=== PATIENT | male | born 1990 | race Caucasian/White ===

== ENCOUNTER 2018-05-26 18:57 | Emergency (ER) | payer OTHER, SELFPAY ==
[2018-05-26 19:01] VITALS: BP 129/92; PULSE 87; RESP 11; TEMP 37.2; O2SAT 96; BMI 33.0
--- NOTE | 2018-05-26 19:07 | ED.SYNCOPE ---
HPI - Syncope <DORY Stewart - Last Filed: 05/26/18 22:17> General Chief Complaint: Syncope Stated Complaint: near syncope Time Seen by Provider: 05/26/18 18:59 Source: patient Mode of arrival: EMS Limitations: no limitations History of Present Illness HPI narrative: 27-year-old healthy male that is an everyday smoker here for pre syncopal episodes. He reports this afternoon he had a couple episodes of presyncope where he felt lightheaded and saw stars. He denies any syncopal episodes. He states that he feels fine now. He denies any shortness of breath. He denies any chest pain. No known injuries. He denies any fevers or chills. Positive p.o. intake. No abdominal pain. He is ambulatory. He denies having a history of syncopal episodes. Related Data Allergies Allergy/AdvReac Type Severity Reaction Status Date / Time No Known Drug Allergies Allergy Verified 05/26/18 19:08 Review of Systems <DORY Stewart - Last Filed: 05/26/18 22:17> Constitutional Denies chills, Denies fatigue, Denies fever(s), Denies lethargy and Denies weakness Eyes Denies change in vision, Denies eye discharge, Denies irritation and Denies loss of vision ENT Ears, Nose, Mouth, and Throat: Denies change in voice, Denies neck pain and Denies sore throat Cardiovascular Reports syncope, Denies dyspnea and Denies dyspnea on exertion Respiratory Denies cough, Denies dyspnea, Denies dyspnea on exertion and Denies wheezing Gastrointestinal Gastrointestinal: Denies abdominal pain, Denies change in bowel habits, Denies diarrhea, Denies nausea and Denies vomiting Genitourinary Denies hematuria, Denies flank pain, Denies urinary incontinence and Denies urinary urgency Musculoskeletal Denies neck pain Integumentary/Breasts Denies pruritus, Denies erythema, Denies rash and Denies wounds Neurologic Denies confusion, Reports syncope, Denies loss of vision and Denies weakness Psychiatric Denies anxiety, Denies confusion, Denies depression, Denies homicidal ideation and Denies suicidal ideation Endocrine Denies fatigue and Denies flushing Hematologic/Lymphatic Denies easy bruising Allergic/Immunologic Denies wheezing Exam <DORY Stewart - Last Filed: 05/26/18 22:17> Initial Vital Signs Initial Vital Signs: Vital Signs Temperature 99 F 05/26/18 19:01 Pulse Rate 87 05/26/18 19:01 Respiratory Rate 11 L 05/26/18 19:01 Blood Pressure 129/92 H 05/26/18 19:01 Pulse Oximetry 96 05/26/18 19:01 Const General: cooperative and well developed Nutritional Appearance: well nourished Orientation: alert, awake, oriented x3 and not confused [facility] Mouth: oral mucosae normal and moist mucous membranes Eyes Conjunctivae: conjunctivae normal Sclera: sclerae normal Pupils: PERRL EOM: EOM intact bilaterally Resp Effort & Inspection: normal respiratory effort, able to speak in complete sentences, no respiratory distress and no use of accessory muscles Auscultation: clear to auscultation bilaterally, no rales, no rhonchi and no wheezes Cardio Rate: regular rate Rhythm: regular rhythm Heart Sounds: no click, no gallops, no murmurs and no rubs Pulses: normal peripheral pulses GI Inspection: non-distended Palpation: soft, no hepatosplenomegaly, No guarding, No pulsatile mass and No tender Auscultation: normal bowel sounds Skin General: no rashes or lesions noted, No jaundice and No petechiae Neuro General: alert, oriented x3, gait normal and no focal motor deficits Speech: speech normal <Jose Manuel Ching DO - Last Filed: 05/26/18 23:43> Initial Vital Signs Initial Vital Signs: Vital Signs Temperature 99 F 05/26/18 19:01 Pulse Rate 87 05/26/18 19:01 Respiratory Rate 11 L 05/26/18 19:01 Blood Pressure 129/92 H 05/26/18 19:01 Pulse Oximetry 96 05/26/18 19:01 Course <DORY Stewart - Last Filed: 05/26/18 22:17> Orders Ordered: ED Orders 05/26/18 19:17 CT head/brain wo con Stat 05/26/18 19:19 XR chest 2V Stat 05/26/18 19:47 Complete Blood Count AUTO DIFF Stat Comprehensive Metabolic Panel Stat Troponin & CK Cardiac Panel Stat 05/26/18 21:27 Troponin I Stat Discontinued Medications Sodium Chloride (Normal Saline 0.9%) 1,000 mls @ 1,000 mls/hr IV BOLUS ONE Stop: 05/26/18 20:15 Last Infusion: 05/26/18 21:25 Dose: 0 mls/hr Admin: 05/26/18 19:32 Dose: 1,000 mls/hr Vital Signs - 8 hr 05/26/18 19:01 05/26/18 20:00 05/26/18 21:04 Temperature 99 F Pulse Rate 87 84 Pulse Rate [Orthostatic Lying] 95 H Pulse Rate [Orthostatic Sitting] 82 Pulse Rate [Orthostatic Standing] 84 Respiratory Rate 11 L 13 Blood Pressure 129/92 H Blood Pressure [Orthostatic Lying] 131/79 Blood Pressure [Orthostatic Sitting] 126/81 Blood Pressure [Orthostatic Standing] 135/87 Blood Pressure [Right Arm] 138/82 Pulse Oximetry 96 98 05/26/18 22:18 05/26/18 22:31 Temperature 98.9 F Pulse Rate 70 73 Pulse Rate [Orthostatic Lying] Pulse Rate [Orthostatic Sitting] Pulse Rate [Orthostatic Standing] Respiratory Rate 11 L 19 Blood Pressure 122/72 Blood Pressure [Orthostatic Lying] Blood Pressure [Orthostatic Sitting] Blood Pressure [Orthostatic Standing] Blood Pressure [Right Arm] 122/72 Pulse Oximetry 97 98 <Jose Manuel Ching, DO - Last Filed: 05/26/18 23:43> Orders Ordered: ED Orders 05/26/18 19:17 CT head/brain wo con Stat 05/26/18 19:19 XR chest 2V Stat 05/26/18 19:47 Complete Blood Count AUTO DIFF Stat Comprehensive Metabolic Panel Stat Troponin & CK Cardiac Panel Stat 05/26/18 21:27 Troponin I Stat Discontinued Medications Sodium Chloride (Normal Saline 0.9%) 1,000 mls @ 1,000 mls/hr IV BOLUS ONE Stop: 05/26/18 20:15 Last Infusion: 05/26/18 21:25 Dose: 0 mls/hr Admin: 05/26/18 19:32 Dose: 1,000 mls/hr Vital Signs - 8 hr 05/26/18 19:01 05/26/18 20:00 05/26/18 21:04 Temperature 99 F Pulse Rate 87 84 Pulse Rate [Orthostatic Lying] 95 H Pulse Rate [Orthostatic Sitting] 82 Pulse Rate [Orthostatic Standing] 84 Respiratory Rate 11 L 13 Blood Pressure 129/92 H Blood Pressure [Orthostatic Lying] 131/79 Blood Pressure [Orthostatic Sitting] 126/81 Blood Pressure [Orthostatic Standing] 135/87 Blood Pressure [Right Arm] 138/82 Pulse Oximetry 96 98 05/26/18 22:18 05/26/18 22:31 Temperature 98.9 F Pulse Rate 70 73 Pulse Rate [Orthostatic Lying] Pulse Rate [Orthostatic Sitting] Pulse Rate [Orthostatic Standing] Respiratory Rate 11 L 19 Blood Pressure 122/72 Blood Pressure [Orthostatic Lying] Blood Pressure [Orthostatic Sitting] Blood Pressure [Orthostatic Standing] Blood Pressure [Right Arm] 122/72 Pulse Oximetry 97 98 MDM - Syncope <DORY Stewart - Last Filed: 05/26/18 22:17> Lab Data Result diagrams: 05/26/18 19:47 05/26/18 19:47 Lab Results 05/26/18 05/26/18 05/26/18 Range/Units 19:47 19:47 21:27 WBC 9.7 (4.5-11.0) X10^3/uL RBC 5.81 (4.5-5.9) X10^6/uL Hgb 16.0 (13.5-17.5) g/dL Hct 46.3 (41-53) % MCV 79.7 L (80-100) fL MCH 27.6 (26-34) PG MCHC 34.6 (30-36) % RDW 12.6 (11.6-14.8) % Plt Count 219 (150-400) X10^3/uL Neut % (Auto) 69.3 (50-75) % Lymph % (Auto) 20.3 L (25-40) % [place] % (Auto) 7.4 (3-14) % Eos % (Auto) 2.3 (2-4) % Baso % (Auto) 0.7 (0-2) % Neut # (Auto) 6700 H (8665-6609) /uL Sodium 142 (137-145) mmol/L Potassium 4.4 (3.4-5.1) mmol/L Chloride 102 (98-107) mmol/L Carbon Dioxide 30 (22-32) mmol/L BUN 20 (9-20) mg/dL Creatinine 0.90 (0.66-1.25) mg/dL Estimated GFR > 60.0 (>60) mL/min BUN/Creatinine Ratio 22.2 H (6-22) Glucose 94 (70-100) mg/dL Calcium 9.9 (8.4-10.2) mg/dL Total Bilirubin 0.5 (0.2-1.3) mg/dL AST 36 (17-59) IU/L ALT 41 (21-72) IU/L Alkaline Phosphatase 68 (38-126) U/L Total Creatine Kinase 189 H (55-170) U/L CK-MB (CK-2) 0.69 (<2.37) ng/mL CK-MB (CK-2) Rel Index 0.4 L (1.5-5.0) % Troponin I < 0.012 < 0.012 (0.01-0.034) ng/mL Total Protein 7.7 (6.3-8.2) g/dL Albumin 4.7 (3.5-5.0) g/dL Globulin 3.0 (1.7-4.1) g/dL Albumin/Globulin Ratio 1.6 (1.0-2.8) Urine Dip Bedside Urine Glucose Negative Bedside Urine Bilirubin - Negative Bedside Urine Ketone - Negative Urine Specific [place] 1.020 Bedside Urine Occult Blood - Negative Bedside Urine pH 6.0 Bedside Urine Protein - Negative Bedside Urine Urobilinogen - Negative Bedside Urine Nitrite - Negative Bedside Urine Leukocytes - Negative Esterase Imaging Data Chest x-ray: Radiologist's impression: [place] [address] XRay Report Signed Patient: Martine Kaiser#: [id number] : 1990Acct:[id number] Age/Sex: 27 / MDate of Service: 05/26/18 Loc: ED Accession Number: [id number] Procedure: XR chest 2V Ordering Provider: Ralph Gonzalez PROCEDURE: XR CHEST 2V INDICATIONS: Pre syncope TECHNIQUE: 2 views of the chest were acquired. COMPARISON: None. FINDINGS: Surgical changes and devices: None. Lungs and pleura: No pleural effusions or pneumothorax. Lungs are clear. Mediastinum: Mediastinal contours are normal. Heart size is normal. Bones and chest wall: No suspicious bony abnormalities. Soft tissues appear unremarkable. IMPRESSION: No acute cardiopulmonary pathology. Dictated by: Larry Elmore M.D. on 05/26/2018 at 20:11 Approved by: Larry Elmore M.D. on 05/26/2018 at 20:11 CT scan - head: Radiologist's impression: [address] [address] [address] Scan Report Signed Patient: Martine Kaiser#: [id number] : 1990Acct:[id number] Age/Sex: 27 / MDate of Service: 05/26/18 Loc: ED Accession Number: [id number] Procedure: CT head/brain wo con Ordering Provider: Ralph Gonzalez PROCEDURE: CT HEAD/BRAIN WO CON INDICATIONS: Pre syncope TECHNIQUE: Noncontrast 4.5 mm thick angled axial sections acquired from the foramen magnum to the vertex, with coronal and sagittal reformats. For radiation dose reduction, the following was used: automated exposure control, adjustment of mA and/or kV according to patient size. COMPARISON: None. FINDINGS: Image quality: Excellent. CSF spaces: Basal cisterns are patent. No extra-axial fluid collections. Ventricles are normal in size and shape. Brain: No midline shift. No intracranial masses or hemorrhage. Young-white matter interface is normal. Skull and face: Calvarium and visualized facial bones are intact, without suspicious lesions. Sinuses: Visualized sinuses and mastoids are clear. IMPRESSION: No CT evidence of acute intracranial pathology. Dictated by: Larry Elmore M.D. on 05/26/2018 at 20:04 Approved by: Larry Elmore M.D. on 05/26/2018 at 20:04 ECG Data Interpretation: EKG shows normal sinus rhythm with no ST elevation or depression. No ectopy. Ventricular rate is 78. Pr interval 150. QRS duration 93. QTC 349. MDM Narrative Medical decision making narrative: CBC and Chem panel were obtained were unremarkable. 2 sets of cardiac enzymes were obtained and were negative. Chest x-ray was negative for any acute findings. Head CT was obtained was negative for any acute findings. Vital signs were stable. EKG shows normal sinus rhythm with no ST elevation or depression. No ectopy. Signs and symptoms presents as pre syncopal episodes most likely vasovagal response. Plenty of fluids and rest. Follow up with primary care provider the next few days for re-evaluation. For any worsening symptoms return to the emergency room. <Jose Manuel Ching DO - Last Filed: 05/26/18 23:43> Lab Data Lab Results 05/26/18 05/26/18 05/26/18 Range/Units 19:47 19:47 21:27 WBC 9.7 (4.5-11.0) X10^3/uL RBC 5.81 (4.5-5.9) X10^6/uL Hgb 16.0 (13.5-17.5) g/dL Hct 46.3 (41-53) % MCV 79.7 L (80-100) fL MCH 27.6 (26-34) PG MCHC 34.6 (30-36) % RDW 12.6 (11.6-14.8) % Plt Count 219 (150-400) X10^3/uL Neut % (Auto) 69.3 (50-75) % Lymph % (Auto) 20.3 L (25-40) % [place] % (Auto) 7.4 (3-14) % Eos % (Auto) 2.3 (2-4) % Baso % (Auto) 0.7 (0-2) % Neut # (Auto) 6700 H (6347-0245) /uL Sodium 142 (137-145) mmol/L Potassium 4.4 (3.4-5.1) mmol/L Chloride 102 (98-107) mmol/L Carbon Dioxide 30 (22-32) mmol/L BUN 20 (9-20) mg/dL Creatinine 0.90 (0.66-1.25) mg/dL Estimated GFR > 60.0 (>60) mL/min BUN/Creatinine Ratio 22.2 H (6-22) Glucose 94 (70-100) mg/dL Calcium 9.9 (8.4-10.2) mg/dL Total Bilirubin 0.5 (0.2-1.3) mg/dL AST 36 (17-59) IU/L ALT 41 (21-72) IU/L Alkaline Phosphatase 68 (38-126) U/L Total Creatine Kinase 189 H (55-170) U/L CK-MB (CK-2) 0.69 (<2.37) ng/mL CK-MB (CK-2) Rel Index 0.4 L (1.5-5.0) % Troponin I < 0.012 < 0.012 (0.01-0.034) ng/mL Total Protein 7.7 (6.3-8.2) g/dL Albumin 4.7 (3.5-5.0) g/dL Globulin 3.0 (1.7-4.1) g/dL Albumin/Globulin Ratio 1.6 (1.0-2.8) Urine Dip Bedside Urine Glucose Negative Bedside Urine Bilirubin - Negative Bedside Urine Ketone - Negative Urine Specific [place] 1.020 Bedside Urine Occult Blood - Negative Bedside Urine pH 6.0 Bedside Urine Protein - Negative Bedside Urine Urobilinogen - Negative Bedside Urine Nitrite - Negative Bedside Urine Leukocytes - Negative Esterase Discharge Plan Departure Patient Disposition: Home Clinical Impression: Vasovagal syncope Discharge Date/Time: 05/26/18 22:33 Interventions: ED Discharge Assessment Last Done: 05/26/18 22:31 Instructions: DI for Syncope in Adults (Fainting) Activity Restrictions/Additional Instructions: Laboratory results EKG chest x-ray and head CT were obtained today and were unremarkable. Signs and symptoms presents as presyncope episode secondary to vasovagal response. Plenty of fluids and rest. Follow up with primary care provider the next few days for re-evaluation. For any worsening symptoms return to the emergency room. Referrals: [facility] [Provider Group] <Jose Manuel Ching DO - Last Filed: 05/26/18 23:43> Cosign ED Attending Volodymyr Attestation: I was available for consultation during this patient's emergency department encounter
--- NOTE | 2018-05-26 19:15 | ED_ITS ---
HPI - Syncope <DORY Stewart - Last Filed: 05/26/18 22:17> General Chief Complaint: Syncope Stated Complaint: near syncope Time Seen by Provider: 05/26/18 18:59 Source: patient Mode of arrival: EMS Limitations: no limitations History of Present Illness HPI narrative: 27-year-old healthy male that is an everyday smoker here for pre syncopal episodes. He reports this afternoon he had a couple episodes of presyncope where he felt lightheaded and saw stars. He denies any syncopal episodes. He states that he feels fine now. He denies any shortness of breath. He denies any chest pain. No known injuries. He denies any fevers or chills. Positive p.o. intake. No abdominal pain. He is ambulatory. He denies having a history of syncopal episodes. Related Data Allergies Allergy/AdvReac Type Severity Reaction Status Date / Time No Known Drug Allergies Allergy Verified 05/26/18 19:08 Review of Systems <DORY Stewart - Last Filed: 05/26/18 22:17> Constitutional Denies chills, Denies fatigue, Denies fever(s), Denies lethargy and Denies weakness Eyes Denies change in vision, Denies eye discharge, Denies irritation and Denies loss of vision ENT Ears, Nose, Mouth, and Throat: Denies change in voice, Denies neck pain and Denies sore throat Cardiovascular Reports syncope, Denies dyspnea and Denies dyspnea on exertion Respiratory Denies cough, Denies dyspnea, Denies dyspnea on exertion and Denies wheezing Gastrointestinal Gastrointestinal: Denies abdominal pain, Denies change in bowel habits, Denies diarrhea, Denies nausea and Denies vomiting Genitourinary Denies hematuria, Denies flank pain, Denies urinary incontinence and Denies urinary urgency Musculoskeletal Denies neck pain Integumentary/Breasts Denies pruritus, Denies erythema, Denies rash and Denies wounds Neurologic Denies confusion, Reports syncope, Denies loss of vision and Denies weakness Psychiatric Denies anxiety, Denies confusion, Denies depression, Denies homicidal ideation and Denies suicidal ideation Endocrine Denies fatigue and Denies flushing Hematologic/Lymphatic Denies easy bruising Allergic/Immunologic Denies wheezing Exam <DORY Stewart - Last Filed: 05/26/18 22:17> Initial Vital Signs Initial Vital Signs: Vital Signs Temperature 99 F 05/26/18 19:01 Pulse Rate 87 05/26/18 19:01 Respiratory Rate 11 L 05/26/18 19:01 Blood Pressure 129/92 H 05/26/18 19:01 Pulse Oximetry 96 05/26/18 19:01 Const General: cooperative and well developed Nutritional Appearance: well nourished Orientation: alert, awake, oriented x3 and not confused [facility] Mouth: oral mucosae normal and moist mucous membranes Eyes Conjunctivae: conjunctivae normal Sclera: sclerae normal Pupils: PERRL EOM: EOM intact bilaterally Resp Effort & Inspection: normal respiratory effort, able to speak in complete sentences, no respiratory distress and no use of accessory muscles Auscultation: clear to auscultation bilaterally, no rales, no rhonchi and no wheezes Cardio Rate: regular rate Rhythm: regular rhythm Heart Sounds: no click, no gallops, no murmurs and no rubs Pulses: normal peripheral pulses GI Inspection: non-distended Palpation: soft, no hepatosplenomegaly, No guarding, No pulsatile mass and No tender Auscultation: normal bowel sounds Skin General: no rashes or lesions noted, No jaundice and No petechiae Neuro General: alert, oriented x3, gait normal and no focal motor deficits Speech: speech normal <Jose Manuel Ching DO - Last Filed: 05/26/18 23:43> Initial Vital Signs Initial Vital Signs: Vital Signs Temperature 99 F 05/26/18 19:01 Pulse Rate 87 05/26/18 19:01 Respiratory Rate 11 L 05/26/18 19:01 Blood Pressure 129/92 H 05/26/18 19:01 Pulse Oximetry 96 05/26/18 19:01 Course <DORY Stewart - Last Filed: 05/26/18 22:17> Orders Ordered: ED Orders 05/26/18 19:17 CT head/brain wo con Stat 05/26/18 19:19 XR chest 2V Stat 05/26/18 19:47 Complete Blood Count AUTO DIFF Stat Comprehensive Metabolic Panel Stat Troponin & CK Cardiac Panel Stat 05/26/18 21:27 Troponin I Stat Discontinued Medications Sodium Chloride (Normal Saline 0.9%) 1,000 mls @ 1,000 mls/hr IV BOLUS ONE Stop: 05/26/18 20:15 Last Infusion: 05/26/18 21:25 Dose: 0 mls/hr Admin: 05/26/18 19:32 Dose: 1,000 mls/hr Vital Signs - 8 hr 05/26/18 19:01 05/26/18 20:00 05/26/18 21:04 Temperature 99 F Pulse Rate 87 84 Pulse Rate [Orthostatic Lying] 95 H Pulse Rate [Orthostatic Sitting] 82 Pulse Rate [Orthostatic Standing] 84 Respiratory Rate 11 L 13 Blood Pressure 129/92 H Blood Pressure [Orthostatic Lying] 131/79 Blood Pressure [Orthostatic Sitting] 126/81 Blood Pressure [Orthostatic Standing] 135/87 Blood Pressure [Right Arm] 138/82 Pulse Oximetry 96 98 05/26/18 22:18 05/26/18 22:31 Temperature 98.9 F Pulse Rate 70 73 Pulse Rate [Orthostatic Lying] Pulse Rate [Orthostatic Sitting] Pulse Rate [Orthostatic Standing] Respiratory Rate 11 L 19 Blood Pressure 122/72 Blood Pressure [Orthostatic Lying] Blood Pressure [Orthostatic Sitting] Blood Pressure [Orthostatic Standing] Blood Pressure [Right Arm] 122/72 Pulse Oximetry 97 98 <Jose Manuel Ching, DO - Last Filed: 05/26/18 23:43> Orders Ordered: ED Orders 05/26/18 19:17 CT head/brain wo con Stat 05/26/18 19:19 XR chest 2V Stat 05/26/18 19:47 Complete Blood Count AUTO DIFF Stat Comprehensive Metabolic Panel Stat Troponin & CK Cardiac Panel Stat 05/26/18 21:27 Troponin I Stat Discontinued Medications Sodium Chloride (Normal Saline 0.9%) 1,000 mls @ 1,000 mls/hr IV BOLUS ONE Stop: 05/26/18 20:15 Last Infusion: 05/26/18 21:25 Dose: 0 mls/hr Admin: 05/26/18 19:32 Dose: 1,000 mls/hr Vital Signs - 8 hr 05/26/18 19:01 05/26/18 20:00 05/26/18 21:04 Temperature 99 F Pulse Rate 87 84 Pulse Rate [Orthostatic Lying] 95 H Pulse Rate [Orthostatic Sitting] 82 Pulse Rate [Orthostatic Standing] 84 Respiratory Rate 11 L 13 Blood Pressure 129/92 H Blood Pressure [Orthostatic Lying] 131/79 Blood Pressure [Orthostatic Sitting] 126/81 Blood Pressure [Orthostatic Standing] 135/87 Blood Pressure [Right Arm] 138/82 Pulse Oximetry 96 98 05/26/18 22:18 05/26/18 22:31 Temperature 98.9 F Pulse Rate 70 73 Pulse Rate [Orthostatic Lying] Pulse Rate [Orthostatic Sitting] Pulse Rate [Orthostatic Standing] Respiratory Rate 11 L 19 Blood Pressure 122/72 Blood Pressure [Orthostatic Lying] Blood Pressure [Orthostatic Sitting] Blood Pressure [Orthostatic Standing] Blood Pressure [Right Arm] 122/72 Pulse Oximetry 97 98 MDM - Syncope <DORY Stewart - Last Filed: 05/26/18 22:17> Lab Data Result diagrams: 05/26/18 19:47 05/26/18 19:47 Lab Results 05/26/18 05/26/18 05/26/18 Range/Units 19:47 19:47 21:27 WBC 9.7 (4.5-11.0) X10^3/uL RBC 5.81 (4.5-5.9) X10^6/uL Hgb 16.0 (13.5-17.5) g/dL Hct 46.3 (41-53) % MCV 79.7 L (80-100) fL MCH 27.6 (26-34) PG MCHC 34.6 (30-36) % RDW 12.6 (11.6-14.8) % Plt Count 219 (150-400) X10^3/uL Neut % (Auto) 69.3 (50-75) % Lymph % (Auto) 20.3 L (25-40) % Posey % (Auto) 7.4 (3-14) % Eos % (Auto) 2.3 (2-4) % Baso % (Auto) 0.7 (0-2) % Neut # (Auto) 6700 H (7344-0874) /uL Sodium 142 (137-145) mmol/L Potassium 4.4 (3.4-5.1) mmol/L Chloride 102 (98-107) mmol/L Carbon Dioxide 30 (22-32) mmol/L BUN 20 (9-20) mg/dL Creatinine 0.90 (0.66-1.25) mg/dL Estimated GFR > 60.0 (>60) mL/min BUN/Creatinine Ratio 22.2 H (6-22) Glucose 94 (70-100) mg/dL Calcium 9.9 (8.4-10.2) mg/dL Total Bilirubin 0.5 (0.2-1.3) mg/dL AST 36 (17-59) IU/L ALT 41 (21-72) IU/L Alkaline Phosphatase 68 (38-126) U/L Total Creatine Kinase 189 H (55-170) U/L CK-MB (CK-2) 0.69 (<2.37) ng/mL CK-MB (CK-2) Rel Index 0.4 L (1.5-5.0) % Troponin I < 0.012 < 0.012 (0.01-0.034) ng/mL Total Protein 7.7 (6.3-8.2) g/dL Albumin 4.7 (3.5-5.0) g/dL Globulin 3.0 (1.7-4.1) g/dL Albumin/Globulin Ratio 1.6 (1.0-2.8) Urine Dip Bedside Urine Glucose Negative Bedside Urine Bilirubin - Negative Bedside Urine Ketone - Negative Urine Specific Lackey 1.020 Bedside Urine Occult Blood - Negative Bedside Urine pH 6.0 Bedside Urine Protein - Negative Bedside Urine Urobilinogen - Negative Bedside Urine Nitrite - Negative Bedside Urine Leukocytes - Negative Esterase Imaging Data Chest x-ray: Radiologist's impression: [place] [address] XRay Report Signed Patient: Martine Kaiser#: [id number] : 1990Acct:[id number] Age/Sex: 27 / MDate of Service: 05/26/18 Loc: ED Accession Number: [id number] Procedure: XR chest 2V Ordering Provider: Ralph Gonzalez PROCEDURE: XR CHEST 2V INDICATIONS: Pre syncope TECHNIQUE: 2 views of the chest were acquired. COMPARISON: None. FINDINGS: Surgical changes and devices: None. Lungs and pleura: No pleural effusions or pneumothorax. Lungs are clear. Mediastinum: Mediastinal contours are normal. Heart size is normal. Bones and chest wall: No suspicious bony abnormalities. Soft tissues appear unremarkable. IMPRESSION: No acute cardiopulmonary pathology. Dictated by: Larry Elmore M.D. on 05/26/2018 at 20:11 Approved by: Larry Elmore M.D. on 05/26/2018 at 20:11 CT scan - head: Radiologist's impression: [address] [address] [address] Scan Report Signed Patient: Martine Kaiser#: [id number] : 1990Acct:[id number] Age/Sex: 27 / MDate of Service: 05/26/18 Loc: ED Accession Number: [id number] Procedure: CT head/brain wo con Ordering Provider: Ralph Gonzalez PROCEDURE: CT HEAD/BRAIN WO CON INDICATIONS: Pre syncope TECHNIQUE: Noncontrast 4.5 mm thick angled axial sections acquired from the foramen magnum to the vertex, with coronal and sagittal reformats. For radiation dose reduction, the following was used: automated exposure control, adjustment of mA and/or kV according to patient size. COMPARISON: None. FINDINGS: Image quality: Excellent. CSF spaces: Basal cisterns are patent. No extra-axial fluid collections. Ventricles are normal in size and shape. Brain: No midline shift. No intracranial masses or hemorrhage. Young-white matter interface is normal. Skull and face: Calvarium and visualized facial bones are intact, without suspicious lesions. Sinuses: Visualized sinuses and mastoids are clear. IMPRESSION: No CT evidence of acute intracranial pathology. Dictated by: Larry Elmore M.D. on 05/26/2018 at 20:04 Approved by: Larry Elmore M.D. on 05/26/2018 at 20:04 ECG Data Interpretation: EKG shows normal sinus rhythm with no ST elevation or depression. No ectopy. Ventricular rate is 78. Pr interval 150. QRS duration 93. QTC 349. MDM Narrative Medical decision making narrative: CBC and Chem panel were obtained were unremarkable. 2 sets of cardiac enzymes were obtained and were negative. Chest x -ray was negative for any acute findings. Head CT was obtained was negative for any acute findings. Vital signs were stable. EKG shows normal sinus rhythm with no ST elevation or depression. No ectopy. Signs and symptoms presents as pre syncopal episodes most likely vasovagal response. Plenty of fluids and rest. Follow up with primary care provider the next few days for re- evaluation. For any worsening symptoms return to the emergency room. <Jose Manuel Ching DO - Last Filed: 05/26/18 23:43> Lab Data Lab Results 05/26/18 05/26/18 05/26/18 Range/Units 19:47 19:47 21:27 WBC 9.7 (4.5-11.0) X10^3/uL RBC 5.81 (4.5-5.9) X10^6/uL Hgb 16.0 (13.5-17.5) g/dL Hct 46.3 (41-53) % MCV 79.7 L (80-100) fL MCH 27.6 (26-34) PG MCHC 34.6 (30-36) % RDW 12.6 (11.6-14.8) % Plt Count 219 (150-400) X10^3/uL Neut % (Auto) 69.3 (50-75) % Lymph % (Auto) 20.3 L (25-40) % Posey % (Auto) 7.4 (3-14) % Eos % (Auto) 2.3 (2-4) % Baso % (Auto) 0.7 (0-2) % Neut # (Auto) 6700 H (1044-5399) /uL Sodium 142 (137-145) mmol/L Potassium 4.4 (3.4-5.1) mmol/L Chloride 102 (98-107) mmol/L Carbon Dioxide 30 (22-32) mmol/L BUN 20 (9-20) mg/dL Creatinine 0.90 (0.66-1.25) mg/dL Estimated GFR > 60.0 (>60) mL/min BUN/Creatinine Ratio 22.2 H (6-22) Glucose 94 (70-100) mg/dL Calcium 9.9 (8.4-10.2) mg/dL Total Bilirubin 0.5 (0.2-1.3) mg/dL AST 36 (17-59) IU/L ALT 41 (21-72) IU/L Alkaline Phosphatase 68 (38-126) U/L Total Creatine Kinase 189 H (55-170) U/L CK-MB (CK-2) 0.69 (<2.37) ng/mL CK-MB (CK-2) Rel Index 0.4 L (1.5-5.0) % Troponin I < 0.012 < 0.012 (0.01-0.034) ng/mL Total Protein 7.7 (6.3-8.2) g/dL Albumin 4.7 (3.5-5.0) g/dL Globulin 3.0 (1.7-4.1) g/dL Albumin/Globulin Ratio 1.6 (1.0-2.8) Urine Dip Bedside Urine Glucose Negative Bedside Urine Bilirubin - Negative Bedside Urine Ketone - Negative Urine Specific Lackey 1.020 Bedside Urine Occult Blood - Negative Bedside Urine pH 6.0 Bedside Urine Protein - Negative Bedside Urine Urobilinogen - Negative Bedside Urine Nitrite - Negative Bedside Urine Leukocytes - Negative Esterase Discharge Plan Departure Patient Disposition: Home Clinical Impression: Vasovagal syncope Discharge Date/Time: 05/26/18 22:33 Interventions: ED Discharge Assessment Last Done: 05/26/18 22:31 Instructions: DI for Syncope in Adults (Fainting) Activity Restrictions/Additional Instructions: Laboratory results EKG chest x-ray and head CT were obtained today and were unremarkable. Signs and symptoms presents as presyncope episode secondary to vasovagal response. Plenty of fluids and rest. Follow up with primary care provider the next few days for re-evaluation. For any worsening symptoms return to the emergency room. Referrals: [facility] [Provider Group] <Jose Manuel Ching DO - Last Filed: 05/26/18 23:43> Cosign ED Attending Volodymyr Attestation: I was available for consultation during this patient's emergency department encounter
--- NOTE | 2018-05-26 19:19 | DI.RAD.S_ITS ---
PROCEDURE: XR CHEST 2V INDICATIONS: Pre syncope TECHNIQUE: 2 views of the chest were acquired. COMPARISON: None. FINDINGS: Surgical changes and devices: None. Lungs and pleura: No pleural effusions or pneumothorax. Lungs are clear. Mediastinum: Mediastinal contours are normal. Heart size is normal. Bones and chest wall: No suspicious bony abnormalities. Soft tissues appear unremarkable. IMPRESSION: No acute cardiopulmonary pathology. Dictated by: Larry Elmore M.D. on 05/26/2018 at 20:11 Approved by: Larry Elmore M.D. on 05/26/2018 at 20:11
[2018-05-26] MEDS: SODIUM CHLORIDE 0.9% 1,000 ML 1000 ML IV (19:32)
[2018-05-26 19:52] LABS: Add Manual Diff / Slide Review NO; Basophils Percent Auto 0.7 % (0-2); Eosinophils Percent Auto 2.3 % (2-4); Hematocrit 46.3 % (41-53); Lymphocytes Percent Auto 20.3 % (25-40); Mean Corpuscular HGB Conc 34.6 % (30-36); Mean Corpuscular Hemoglobin 27.6 PG (26-34); Mean Corpuscular Volume 79.7 fL (80-100); Monocytes Percent Auto 7.4 % (3-14); Neutrophils Absolute Auto 6700 /uL (3000-5900); Neutrophils Percent Auto 69.3 % (50-75); Platelet Count 219 X10^3/uL (150-400); Red Blood Cell Count 5.81 X10^6/uL (4.5-5.9); Red Cell Distribution Width 12.6 % (11.6-14.8); White Blood Cell Count 9.7 X10^3/uL (4.5-11.0)
[2018-05-26 20:00] VITALS: BP 138/82; PULSE 84; RESP 13; O2SAT 98
[2018-05-26 20:05] LABS: Alanine Aminotransferase 41 IU/L (21-72); Albumin 4.7 g/dL (3.5-5.0); Albumin Globulin Ratio 1.6 (1.0-2.8); Alkaline Phosphatase 68 U/L (38-126); Aspartate Aminotransferase 36 IU/L (17-59); BUN Creatinine Ratio 22.2 (6-22); Bilirubin Total 0.5 mg/dL (0.2-1.3); Blood Urea Nitrogen 20 mg/dL (9-20); Calcium 9.9 mg/dL (8.4-10.2); Carbon Dioxide 30 mmol/L (22-32); Chloride 102 mmol/L (98-107); Creatine Kinase 189 U/L (55-170); Estimated Glomerular Filt Rate > 60.0 mL/min (>60); Glucose 94 mg/dL (70-100); HEMOLYSIS < 15 (0-50); Potassium 4.4 mmol/L (3.4-5.1); Sodium 142 mmol/L (137-145); Total Protein 7.7 g/dL (6.3-8.2)
[2018-05-26 20:21] LABS: CKMB % Relative Index 0.4 % (1.5-5.0); Creatine Kinase MB 0.69 ng/mL (<2.37); Troponin I < 0.012 ng/mL (0.01-0.034)
[2018-05-26 21:04] VITALS: BP 126/81; BP 131/79; BP 135/87; PULSE 82; PULSE 84; PULSE 95
[2018-05-26 22:01] LABS: Troponin I < 0.012 ng/mL (0.01-0.034)
[2018-05-26 22:18] VITALS: BP 122/72; PULSE 70; RESP 11; O2SAT 97
[2018-05-26 22:31] VITALS: BP 122/72; PULSE 73; RESP 19; TEMP 37.2; O2SAT 98
== END 2018-05-26 22:33 | disposition home or self-care (01) ==
PROVIDERS: Emergency Provider Nurse Practitioner Family
DX: R55 Syncope and collapse (principal)
CPT/HCPCS: 36415; 70450; 71046; 80053; 81003; 82550; 82553; 84484; 85025; 93005; 96360; 96361; 99283; 99285

== ENCOUNTER → 2020-01-21 15:14 | Outpatient (CLI) | payer OTHER, SELFPAY ==
[2020-01-22 11:09] LABS: COVID19 Sendout Not Detected (Not Detect)
== END ==
PROVIDERS: Visit Provider Registered Nurse
DX: Z01.812 Encounter for preprocedural laboratory examination (principal)
CPT/HCPCS: 87635

== ENCOUNTER → 2020-07-28 11:08 | Outpatient (CLI) | payer OTHER, SELFPAY ==
[2020-07-28 13:10] LABS: COVID19 -Nasal RAPID Negative (Negative)
== END ==
PROVIDERS: PCP Nurse Practitioner; Visit Provider Physician Assistant
DX: Z11.59 Encounter for screening for other viral diseases (principal)
CPT/HCPCS: 87635

== ENCOUNTER 2020-07-31 07:39 | Day surgery (SDC) | payer OTHER, SELFPAY ==
[2020-07-29 13:43] VITALS: BMI 37.5
[2020-07-31] VITALS (12 sets, daily range): BP systolic 124–145; BP diastolic 76–98; PULSE 67–97; RESP 10–16; TEMP 36.1–36.6; O2SAT 93–99; BMI 37.5
[2020-07-31] MEDS: LACTATED RINGERS 1,000 ML 42 ML IV (08:18)
--- NOTE | 2020-07-31 09:01 | PM.HP.1 ---
History of Present Illness History of Present Illness Date Patient Seen: 07/31/20 Time Patient Seen: 09:01 Chief complaint: SDC Narrative: 29-year-old male with the above diagnoses, incompletely managed with medical therapy presents for tonsillectomy and possible adenoidectomy. Continues fullface CPAP for presumed severe RAMAN, no interval health concerns. Patient History Medical History Chronic tonsillitis Degenerative disk disease Hypertrophy of tonsils RAMAN on CPAP Surgical History No history of previous surgery Family & Social History Social History: household members spouse,children Tobacco & Substance use: Smoking Status Former smoker alcohol intake current alcohol intake frequency holiday/special occasion Substance Use Type does not use Meds Home Medications and Allergies Home Medications Medication Instructions Recorded Confirmed Type escitalopram oxalate 1 mg PO DAILY 06/11/18 07/31/20 History Allergies Allergy/AdvReac Type Severity Reaction Status Date / Time No Known Drug Allergies Allergy Verified 07/31/20 08:12 Exam Vital Signs (past 8 hours): - 07/31/20 08:18 Temperature 97 F L Pulse Rate 88 Respiratory Rate 16 Blood Pressure 124/83 Pulse Oximetry 98 Oxygen Delivery Method Room Air Narrative Exam Narrative: Well-developed well-nourished male, awake, alert. Heart regular rate and rhythm without murmur, lungs clear to auscultation bilaterally Assessment & Plan Assessment & Plan narrative: Assessment: 1. Recurrent acute tonsillitis 2. Tonsillar hypertrophy 3. RAMAN Plan: Following discussion of the material risks benefits complications and alternatives, the patient elected to proceed with tonsillectomy and possible adenoidectomy.
--- NOTE | 2020-07-31 09:03 | PM.PREOP ---
Pre-operative Note COVID-19 COVID-19 status: Negative Result date/Date tested (Pos, Neg/Pending): 07/28/20 Interval Note History & Physical reviewed/Exam performed by Physician: Yes Changes to H&P: No
--- NOTE | 2020-07-31 09:04 | PM.OP.1 ---
Operative Date/Time/Diagnoses Date of procedure: 07/31/20 Time of procedure: 09:40 Pre-op diagnosis: 1. Recurring acute tonsillitis 2. Tonsillar hypertrophy 3. RAMAN Post-op diagnosis: other (Mild adenoid hypertrophy in addition) Procedure & Clinicians Procedure: Tonsillectomy and Adenoidectomy Same procedure as scheduled: Yes Indications: 29-year-old male with the above diagnoses incompletely managed with medical therapy presents for the above procedure. Following discussion of the material risks benefits complications and alternatives, he elected to proceed. Surgeon: Kevin Batista Click Yes if Unassisted: Yes Anesthesia Type: General and Local Operative Notes Findings: Intact palate, single uvula, 3+ tonsils, 2+ adenoids Closure Type: not applicable Specimen(s): none sent Estimated Blood Loss (mL): 10 Blood products transfused: none Procedure in detail: Following identification and confirmation of consent the patient was brought to the operating room suite and placed in the supine position. General endotracheal anesthesia was administered. A head wrap, shoulder roll, and mouth gag were placed and a red rubber catheter was inserted through the nostril and out the mouth to retract the soft palate. Mild adenoid hypertrophy was ablated with suction electrocautery on a setting of 40, without injury to the eustachian tube orifices or choanae. The left tonsil was retracted medially and suction electrocautery on a setting of 30 was used to dissect the tonsil in a subcapsular plane, followed by hemostasis with the same. This process was repeated on the right side with identical findings. The tonsillar fossae were superficially infiltrated bilaterally with a 1:1 mixture of 1% lidocaine 1 100,000 epinephrine and 0.25% Marcaine 1 to 266187 epinephrine. Mouth gag and rubber catheter were removed and the patient was extubated in the operating room and taken to the recovery room in stable condition without known complication. Complications: none Post-operative Condition: stable Disposition: same day surgery Plan for aftercare: [place] home
--- NOTE | 2020-07-31 09:20 | SUR.OPER ---
Supine on padded OR bed, head on pillow, arms secured on padded arm boards at <90 degrees abduction, legs uncrossed, safety belt at thigh, tape over blanket over lower legs.
[2020-07-31] MEDS: BUPIVACAINE 0.25% W/ EPI 30 ML VIAL INJ (09:23)
[2020-07-31] MEDS: LIDOCAINE 1% W/EPI 20 ML INJ (09:24)
[2020-07-31] MEDS: OXYCODONE/ACETAMINOPHEN 5/325 TABLET 1 TAB PO ×2 (10:16→10:46)
--- NOTE | 2020-07-31 10:35 | SUR.PHASEII ---
pt arrived to phase II via stretcher. pt sitting up in bed and responds to RN when spoken to. pt tolerating oral intake without any difficultly. pt denies any nausea. pt rating pain 4/10 at this time. Will medicated with po pain medication. bed in lowest position and call light given to pt. pt awaiting arrival of spouse.
== END 2020-07-31 11:00 | disposition home or self-care (01) ==
PROVIDERS: PCP Nurse Practitioner; Referring Provider Nurse Practitioner; Visit Provider Otolaryngology
PROC: (CPT 42821; principal; 2020-07-31 08:45)
DX: J35.01 Chronic tonsillitis (principal); G47.33 Obstructive sleep apnea (adult) (pediatric)
CPT/HCPCS: 42821; J0330; J1100; J2250; J2405; J2704; J3010

== ENCOUNTER 2020-08-08 16:30 | Emergency (ER) | payer OTHER, SELFPAY ==
[2020-08-08 16:41] VITALS: BP 138/80; PULSE 89; RESP 16; TEMP 36.2; O2SAT 96; BMI 37.5
--- NOTE | 2020-08-08 16:46 | PC.NURSE ---
Patient reports had tonsillectomy last . States today had abdominal discomfort followed by an episode of vomiting with some bright red blood, not a lot, but not a little. Inspection of patient throat shows no visible signs of blood or hemorrhage and clear, patent airway.
[2020-08-08 17:49] LABS: Add Manual Diff / Slide Review NO; Basophils Absolute Auto 0 /uL (0-100); Basophils Percent Auto 0.3 % (0-2); Eosinophils Absolute Auto 0 /uL (0-450); Eosinophils Percent Auto 0.1 % (2-4); Hematocrit 44.4 % (41-53); Hemoglobin 14.9 g/dL (13.5-17.5); Lymphocytes Absolute Auto 1700 /uL (1100-4500); Lymphocytes Percent Auto 11.2 % (25-40); Mean Corpuscular HGB Conc 33.7 % (30-36); Mean Corpuscular Volume 80.1 fL (80-100); Monocytes Absolute Auto 400 /uL (0-900); Monocytes Percent Auto 2.8 % (3-14); Neutrophils Absolute Auto 13100 /uL (1500-7000); Neutrophils Percent Auto 85.6 % (50-75); Platelet Count 247 X10^3/uL (150-400); Red Blood Cell Count 5.54 X10^6/uL (4.5-5.9); Red Cell Distribution Width 12.8 % (11.6-14.8); White Blood Cell Count 15.3 X10^3/uL (4.5-11.0)
[2020-08-08] MEDS: PANTOPRAZOLE 40 MG VIAL IV (17:49)
[2020-08-08] MEDS: SUCRALFATE 1 GM/10 ML ORAL SUSP PO (17:51)
[2020-08-08] MEDS: SODIUM CHLORIDE 0.9% 1,000 ML 999 ML IV (17:52)
[2020-08-08 18:10] VITALS: PULSE 77; O2SAT 98
[2020-08-08 18:11] LABS: Alanine Aminotransferase 40 IU/L (<50); Albumin 4.5 g/dL (3.5-5.0); Albumin Globulin Ratio 1.3 (1.0-2.8); Alkaline Phosphatase 82 U/L (38-126); Aspartate Aminotransferase 29 IU/L (17-59); BUN Creatinine Ratio 27.1 (6-22); Bilirubin Total 0.7 mg/dL (0.2-1.3); Blood Urea Nitrogen 19 mg/dL (9-20); Calcium 9.8 mg/dL (8.4-10.2); Carbon Dioxide 28 mmol/L (22-32); Chloride 104 mmol/L (98-107); Estimated Glomerular Filt Rate > 60.0 mL/min (>60); Globulin 3.4 g/dL (1.7-4.1); Glucose 127 mg/dL (70-100); HEMOLYSIS < 15 (0-50); Lipase 58 U/L (23-300); Potassium 4.6 mmol/L (3.4-5.1); Sodium 138 mmol/L (137-145); Total Protein 7.9 g/dL (6.3-8.2)
[2020-08-08 18:18] VITALS: BP 139/84; PULSE 73; O2SAT 99
--- NOTE | 2020-08-08 18:19 | ED.ABDPAIN ---
HPI - Abdominal Pain <DORY Sharp - Last Filed: 08/08/20 19:46> General Chief Complaint: Abdominal Pain Stated Complaint: tonsil surgery, vomiting blood Time Seen by Provider: 08/08/20 16:50 Source: patient Mode of arrival: Ambulatory Limitations: no limitations History of Present Illness HPI narrative: This is a 29-year-old male, former smoker, who has past medical history significant for anxiety, tonsil and adenoidectomy on 07/31/2020 from enlarged tonsils from strep infection by presents to ED with chief complain of epigastric pain and streak of blood mixed in with bile today. Patient reports he has been having rough time since the surgery with pain management. Patient has been started taking prednisone for pain 6 days ago. Patient could not eat or drink much due to pain until today. Patient initially started on taper dose but this has been increased to 60 mg 2 days ago due to increased in pain. Patient reports today's 1st day he was able to eat and talk and did not require other pain medications. Patient also has been taking Tylenol and ibuprofen 600 mg alternating every 3 hours previously. Patient had taken some Tums and took a nap after the epigastric pain started this morning. 1 hour prior to coming into ED, he felt increased pain and nausea then he threw up in the shower once. Patient denies chest pain, dyspnea. He reports occasional mild lightheadedness. Patient reports does not have follow-up appointment set up with Dr. Batista yet. Patient denies fever, chills. Related Data Home Medications Medication Instructions Recorded Confirmed escitalopram oxalate 1 mg PO DAILY 06/11/18 07/31/20 Previous Rx's Medication Instructions Recorded pantoprazole [Protonix] 20 mg PO BID 14 Days #28 tab 08/08/20 sucralfate 1 g PO Q6H #420 ml 08/08/20 Allergies Allergy/AdvReac Type Severity Reaction Status Date / Time No Known Drug Allergies Allergy Verified 08/08/20 16:44 Review of Systems <DORY Sharp - Last Filed: 08/08/20 19:46> Review of Systems Narrative: General: Denies fever, chills, fatigue, malaise, sweats. HEENT: See HPI Respiratory: Denies dyspnea, cough, wheezing, hemoptysis, sputum. Cardiovascular: Denies chest pain, palpitations, orthopnea, edema. Gastrointestinal: See HPI : Denies dysuria, frequency, incontinence, hematuria, urinary retention. Musculoskeletal: Denies weakness, joint pain or bony pain. Skin: Denies rash, skin lesions, or other. Neurologic: Denies weakness, headache, numbness, change in speech, confusion, seizures, incoordination. Psychiatric: No concerning psychosocial issues. 12-point review of systems is negative except for those stated above. Patient History <DORY Sharp - Last Filed: 08/08/20 19:46> Medical History Chronic tonsillitis Degenerative disk disease Hypertrophy of tonsils RAMAN on CPAP Surgical History No history of previous surgery Social History household members: spouse and children Smoking Status: Former smoker alcohol intake: current Smoking Status: Former smoker alcohol intake frequency: holidays/special occasions only Substance Use Type: does not use Exam <ODRY Sharp - Last Filed: 08/08/20 19:46> Narrative Exam Narrative: GEN: Alert, oriented x 3, well appearing and nourished, and in no acute distress. Head: Normal cephalic, atraumatic. No scalp or temporal tenderness, palpable mass or rash. EYES: Pupils are equal, round, and reactive to light and accommodation. Extraocular muscles are intact bilaterally. There is no subconjunctival hemorrhage, exudate and sclera non-icteric. ENT: Hearing grossly intact. Nose without bleeding, purulent discharge or deviation. Facial sinuses nontender to palpate. Mucous membrane moist, white patch in tonsilar region without blood clots or active bleeding. No yellowish exudate or erythema in throat. Uvula in midline, airway patent. Neck: Trachea in midline. No JVD, non-tender without lymphadenopathy. No masses or thyroid megaly. Supple, non-tender and no meningeal signs. CARDIAC: Normal regular rate and rhythm without murmurs, gallops, or rubs. No chest wall tenderness. No peripheral edema, cyanosis or pallor. Capillary refill is less than 2 seconds. RESPIRATORY: Lungs are clear to auscultate bilaterally. No cough, wheezes, rales, or rhonchi. No stridor, respiratory distress, increase work of breathing, or accessary muscle used. ABD: Abdomen soft and non-distended. Epigastric region tender to palpate. No guarding or rebound tenderness to palpate. Bowel sounds are normal in all 4 quadrants. There is no palpable masses or organomegaly. EXT: Full painless ROM of all extremities with no loss of sensation, strength, effusion or edema. SKIN: Warm, dry, normal color for patient. No erythema, lesions or rash over visible areas. BACK: Nontender without deformity or crepitance. No flank tenderness. NEUROLOGICAL: Alert and oriented to place, time and person. Sensation and motor function intact bilaterally. No facial droops, dysphasia. PSYCHIATRIC: Good judgement and reason, without hallucinations, abnormal affect or abnormal behaviors during the examination. Patient is not suicidal. Initial Vital Signs Initial Vital Signs: Vital Signs Temperature 97.1 F L 08/08/20 16:41 Pulse Rate 89 08/08/20 16:41 Respiratory Rate 16 08/08/20 16:41 Blood Pressure 138/80 08/08/20 16:41 Pulse Oximetry 96 08/08/20 16:41 <Solange Dewey DO - Last Filed: 08/09/20 13:13> Initial Vital Signs Initial Vital Signs: Vital Signs Temperature 97.1 F L 08/08/20 16:41 Pulse Rate 89 08/08/20 16:41 Respiratory Rate 16 08/08/20 16:41 Blood Pressure 138/80 08/08/20 16:41 Pulse Oximetry 96 08/08/20 16:41 Scores <DORY Sharp - Last Filed: 08/08/20 19:46> GCS [place] coma scale eye opening: Spontaneous [place] coma scale verbal response: Orientated [place] coma scale motor response: Obey commands [place] coma scale total score: 15 Course <DORY Sharp - Last Filed: 08/08/20 19:46> Orders Ordered: Discontinued Medications Sodium Chloride (Normal Saline 0.9%) 1,000 mls @ 999 mls/hr IV CONT ARIANE Last Infusion: 08/08/20 19:09 Dose: 0 mls/hr Documented by: Admin: 08/08/20 17:52 Dose: 999 mls/hr Documented by: RMARTIN Pantoprazole Sodium (Pantoprazole 40 Mg Vial) 40 mg IV NOW ONE Stop: 08/08/20 17:06 Last Admin: 08/08/20 17:49 Dose: 40 mg Documented by: RMARTIN Sucralfate (Sucralfate 1 Gm/10 Ml Oral Susp) 1 gm PO NOW ONE Stop: 08/08/20 17:08 Last Admin: 08/08/20 17:51 Dose: 1 gm Documented by: MARICHUY Reevaluation(s) Reevaluation #1: Patient reports epigastric discomfort improved after the medication administration. Patient denies further emesis after once at home before coming into ED. Time: 18:20 Consultations Consultation #1: Dr. Batista consulted with physical findings, labs and treatments given. He requested patient to go home with sucralfate liquid formulation and pantoprazole. He instructed patient to call the office on Tuesday to set up follow-up appointment next week. Time: 18:25 Vital Signs Vital signs: Vital Signs - 8 hr 08/08/20 16:41 08/08/20 18:10 08/08/20 18:18 Temperature 97.1 F L Pulse Rate 89 77 73 Respiratory Rate 16 Blood Pressure 138/80 139/84 Pulse Oximetry 96 98 99 08/08/20 18:30 08/08/20 19:00 Temperature Pulse Rate 78 80 Respiratory Rate Blood Pressure 132/81 143/80 H Pulse Oximetry 98 98 <Solange Dewey, DO - Last Filed: 08/09/20 13:13> Orders Ordered: Discontinued Medications Sodium Chloride (Normal Saline 0.9%) 1,000 mls @ 999 mls/hr IV CONT ARIANE Last Infusion: 08/08/20 19:09 Dose: 0 mls/hr Documented by: Admin: 08/08/20 17:52 Dose: 999 mls/hr Documented by: JENNIFERARTIN Pantoprazole Sodium (Pantoprazole 40 Mg Vial) 40 mg IV NOW ONE Stop: 08/08/20 17:06 Last Admin: 08/08/20 17:49 Dose: 40 mg Documented by: JENNIFERARTIN Sucralfate (Sucralfate 1 Gm/10 Ml Oral Susp) 1 gm PO NOW ONE Stop: 08/08/20 17:08 Last Admin: 08/08/20 17:51 Dose: 1 gm Documented by: MARICHUY Vital Signs Vital signs: Vital Signs - 8 hr 08/08/20 16:41 08/08/20 18:10 08/08/20 18:18 Temperature 97.1 F L Pulse Rate 89 77 73 Respiratory Rate 16 Blood Pressure 138/80 139/84 Pulse Oximetry 96 98 99 08/08/20 18:30 08/08/20 19:00 Temperature Pulse Rate 78 80 Respiratory Rate Blood Pressure 132/81 143/80 H Pulse Oximetry 98 98 MDM - Abdominal Pain <Raheem Gibbons-SergioDORY roldan - Last Filed: 08/08/20 19:46> Differential Diagnosis Differential diagnosis: Likely abdominal pain and other (Gastritis, gastric ulcer, postop bleeding) Medical Records Attestation: I reviewed the patient's medical records. Lab Data Attestation: I reviewed the patient's lab results. Result diagrams: 08/08/20 17:42 08/08/20 17:42 Labs: Lab Results 08/08/20 08/08/20 08/08/20 Range/Units 17:42 17:42 17:42 WBC 15.3 H (4.5-11.0) X10^3/uL RBC 5.54 (4.5-5.9) X10^6/uL Hgb 14.9 (13.5-17.5) g/dL Hct 44.4 (41-53) % MCV 80.1 (80-100) fL MCH 27.0 (26-34) PG MCHC 33.7 (30-36) % RDW 12.8 (11.6-14.8) % Plt Count 247 (150-400) X10^3/uL Neut % (Auto) 85.6 H (50-75) % Lymph % (Auto) 11.2 L (25-40) % [place] % (Auto) 2.8 L (3-14) % Eos % (Auto) 0.1 L (2-4) % Baso % (Auto) 0.3 (0-2) % Neut # (Auto) 18101 H (1850-2578) /uL Lymph # (Auto) 1700 (5855-9015) /uL [place] # (Auto) 400 (0-900) /uL Eos # (Auto) 0 (0-450) /uL Baso # (Auto) 0 (0-100) /uL Sodium 138 (137-145) mmol/L Potassium 4.6 (3.4-5.1) mmol/L Chloride 104 (98-107) mmol/L Carbon Dioxide 28 (22-32) mmol/L BUN 19 (9-20) mg/dL Creatinine 0.70 (0.66-1.25) mg/dL Estimated GFR > 60.0 (>60) mL/min BUN/Creatinine Ratio 27.1 H (6-22) Glucose 127 H (70-100) mg/dL Lactate (0.7-2.1) mmol/L Calcium 9.8 (8.4-10.2) mg/dL Total Bilirubin 0.7 (0.2-1.3) mg/dL AST 29 (17-59) IU/L ALT 40 (<50) IU/L Alkaline Phosphatase 82 (38-126) U/L Total Protein 7.9 (6.3-8.2) g/dL Albumin 4.5 (3.5-5.0) g/dL Globulin 3.4 (1.7-4.1) g/dL Albumin/Globulin Ratio 1.3 (1.0-2.8) Lipase 58 (23-300) U/L Blood Type O Positive Antibody Screen Negative 08/08/20 08/08/20 Range/Units 17:42 19:06 WBC (4.5-11.0) X10^3/uL RBC (4.5-5.9) X10^6/uL Hgb (13.5-17.5) g/dL Hct (41-53) % MCV (80-100) fL MCH (26-34) PG MCHC (30-36) % RDW (11.6-14.8) % Plt Count (150-400) X10^3/uL Neut % (Auto) (50-75) % Lymph % (Auto) (25-40) % [place] % (Auto) (3-14) % Eos % (Auto) (2-4) % Baso % (Auto) (0-2) % Neut # (Auto) (4329-4441) /uL Lymph # (Auto) (5239-4602) /uL [place] # (Auto) (0-900) /uL Eos # (Auto) (0-450) /uL Baso # (Auto) (0-100) /uL Sodium (137-145) mmol/L Potassium (3.4-5.1) mmol/L Chloride (98-107) mmol/L Carbon Dioxide (22-32) mmol/L BUN (9-20) mg/dL Creatinine (0.66-1.25) mg/dL Estimated GFR (>60) mL/min BUN/Creatinine Ratio (6-22) Glucose (70-100) mg/dL Lactate 2.2 H 1.6 (0.7-2.1) mmol/L Calcium (8.4-10.2) mg/dL Total Bilirubin (0.2-1.3) mg/dL AST (17-59) IU/L ALT (<50) IU/L Alkaline Phosphatase (38-126) U/L Total Protein (6.3-8.2) g/dL Albumin (3.5-5.0) g/dL Globulin (1.7-4.1) g/dL Albumin/Globulin Ratio (1.0-2.8) Lipase (23-300) U/L Blood Type Antibody Screen Point of care testing: Urine Dip Bedside Urine Glucose Negative Bedside Urine Bilirubin - Negative Bedside Urine Ketone - Negative Urine Specific [place] 1.020 Bedside Urine Occult Blood +/- Bedside Urine pH 6.0 Bedside Urine Protein - Negative Bedside Urine Urobilinogen - Negative Bedside Urine Nitrite - Negative Bedside Urine Leukocytes - Negative Esterase MDM Narrative Medical decision making narrative: This is a 29-year-old male who presents to ED with epigastric pain and 1 episode of vomiting with bile mixed in bright red streak of blood this afternoon. Patient had tonsil and adenoidectomy 8 days ago and has been taking prednisone for pain management. Patient reports throat pain is actually better today and finally he was able to eat, drink, and talk this morning. Physical exam with tenderness to palpate in epigastric region. Throat exam was unremarkable without active bleeding, blood clots but white patch in tonsilar region. Patient was medicated with IV fluid, Protonix 40 mg IV, sucralfate 1 g liquid which helped his symptoms. Patient had stable H&H of 14.9/44.4. Slightly elevated white count to 15.3 may due to prednisone use and not from an infection given patient does not have fever, throat exudates, improving pain. Unremarkable chemistry test except slightly elevated BUN and creatinine ratio likely from dehydration. Initial lactate was elevated to 2.2. After 1 L of IV fluid, lactate was repeated which came down to normal to 1.6. Dr. Batista consulted and he agreed to re-evaluated patient next week and to discharge patient home for medications for possible gastritis. Strict return precautions were discussed with patient and he and spouse verbalized understanding in agreement with treatment plan. <Solange Dewey, DO - Last Filed: 08/09/20 13:13> Lab Data Labs: Lab Results 08/08/20 08/08/20 08/08/20 Range/Units 17:42 17:42 17:42 WBC 15.3 H (4.5-11.0) X10^3/uL RBC 5.54 (4.5-5.9) X10^6/uL Hgb 14.9 (13.5-17.5) g/dL Hct 44.4 (41-53) % MCV 80.1 (80-100) fL MCH 27.0 (26-34) PG MCHC 33.7 (30-36) % RDW 12.8 (11.6-14.8) % Plt Count 247 (150-400) X10^3/uL Neut % (Auto) 85.6 H (50-75) % Lymph % (Auto) 11.2 L (25-40) % [place] % (Auto) 2.8 L (3-14) % Eos % (Auto) 0.1 L (2-4) % Baso % (Auto) 0.3 (0-2) % Neut # (Auto) 41056 H (9234-1586) /uL Lymph # (Auto) 1700 (4851-7041) /uL [place] # (Auto) 400 (0-900) /uL Eos # (Auto) 0 (0-450) /uL Baso # (Auto) 0 (0-100) /uL Sodium 138 (137-145) mmol/L Potassium 4.6 (3.4-5.1) mmol/L Chloride 104 (98-107) mmol/L Carbon Dioxide 28 (22-32) mmol/L BUN 19 (9-20) mg/dL Creatinine 0.70 (0.66-1.25) mg/dL Estimated GFR > 60.0 (>60) mL/min BUN/Creatinine Ratio 27.1 H (6-22) Glucose 127 H (70-100) mg/dL Lactate (0.7-2.1) mmol/L Calcium 9.8 (8.4-10.2) mg/dL Total Bilirubin 0.7 (0.2-1.3) mg/dL AST 29 (17-59) IU/L ALT 40 (<50) IU/L Alkaline Phosphatase 82 (38-126) U/L Total Protein 7.9 (6.3-8.2) g/dL Albumin 4.5 (3.5-5.0) g/dL Globulin 3.4 (1.7-4.1) g/dL Albumin/Globulin Ratio 1.3 (1.0-2.8) Lipase 58 (23-300) U/L Blood Type O Positive Antibody Screen Negative 08/08/20 08/08/20 Range/Units 17:42 19:06 WBC (4.5-11.0) X10^3/uL RBC (4.5-5.9) X10^6/uL Hgb (13.5-17.5) g/dL Hct (41-53) % MCV (80-100) fL MCH (26-34) PG MCHC (30-36) % RDW (11.6-14.8) % Plt Count (150-400) X10^3/uL Neut % (Auto) (50-75) % Lymph % (Auto) (25-40) % [place] % (Auto) (3-14) % Eos % (Auto) (2-4) % Baso % (Auto) (0-2) % Neut # (Auto) (3101-2566) /uL Lymph # (Auto) (8416-2345) /uL [place] # (Auto) (0-900) /uL Eos # (Auto) (0-450) /uL Baso # (Auto) (0-100) /uL Sodium (137-145) mmol/L Potassium (3.4-5.1) mmol/L Chloride (98-107) mmol/L Carbon Dioxide (22-32) mmol/L BUN (9-20) mg/dL Creatinine (0.66-1.25) mg/dL Estimated GFR (>60) mL/min BUN/Creatinine Ratio (6-22) Glucose (70-100) mg/dL Lactate 2.2 H 1.6 (0.7-2.1) mmol/L Calcium (8.4-10.2) mg/dL Total Bilirubin (0.2-1.3) mg/dL AST (17-59) IU/L ALT (<50) IU/L Alkaline Phosphatase (38-126) U/L Total Protein (6.3-8.2) g/dL Albumin (3.5-5.0) g/dL Globulin (1.7-4.1) g/dL Albumin/Globulin Ratio (1.0-2.8) Lipase (23-300) U/L Blood Type Antibody Screen Point of care testing: Urine Dip Bedside Urine Glucose Negative Bedside Urine Bilirubin - Negative Bedside Urine Ketone - Negative Urine Specific [place] 1.020 Bedside Urine Occult Blood +/- Bedside Urine pH 6.0 Bedside Urine Protein - Negative Bedside Urine Urobilinogen - Negative Bedside Urine Nitrite - Negative Bedside Urine Leukocytes - Negative Esterase Discharge Plan Departure Patient Disposition: Home Clinical Impression: Gastritis Qualifiers: Gastritis type: unspecified gastritis Chronicity: acute Gastritis bleeding: with bleeding Qualified Code(s): K29.01 - Acute gastritis with bleeding Instructions: DI for Gastritis Activity Restrictions/Additional Instructions: You have been diagnosed with [gastritis likely from using NSAIDs and prednisone for surgical pain]. What to do: *Take your medications as directed. Please use Protonix twice a day. Use sucralfate liquid every 6 hours. Please hydrate adequately and eat bland diet in small amounts frequently. If it is possible try to limit using NSAIDs. *Follow up with your primary care provider in 2-3 days, call for an appointment. Let them know you were seen in the ED and that we asked you to be seen in follow up. Please follow-up with Dr. Batista by calling his office on Tuesday to make an appointment. *Return to ED if you have any new, worsening, or concerning symptoms, such as [increasing or recurring gastric or surgical bleeding, increasing pain, short of breath, chest pain, lightheadedness, unable to tolerate fluids, fever or any acute concerns]. Prescriptions: New sucralfate 100 mg/mL suspension 1 g PO Q6H Qty: 420 RF: 0 pantoprazole [Protonix] 20 mg tablet,delayed release (DR/EC) 20 mg PO BID 14 Days Qty: 28 RF: 0 No Action escitalopram oxalate 1 mg PO DAILY RF: 0 Referrals: Kelsie Alcala ARNP [Primary Care Provider] - Kevin Batista MD [Physician] - <Solange Dewey DO - Last Filed: 08/09/20 13:13> Cosign ED Attending Cosignature Attestation: I was immediately available in the department for consultation. Documentation has been reviewed. I agree with assessment and plan.
[2020-08-08 18:27] LABS: Lactate (Lactic Acid) 2.2 mmol/L (0.7-2.1)
[2020-08-08 18:30] VITALS: BP 132/81; PULSE 78; O2SAT 98
[2020-08-08 19:00] VITALS: BP 143/80; PULSE 80; O2SAT 98
[2020-08-08 19:26] LABS: Lactate (Lactic Acid) 1.6 mmol/L (0.7-2.1)
[2020-08-08 19:42] VITALS: BP 142/78; PULSE 73; RESP 18; O2SAT 98
[2020-08-08 20:18] LABS: Reflexed Lactate in 2 Hours Y
== END 2020-08-08 19:44 | disposition home or self-care (01) ==
PROVIDERS: Emergency Provider Nurse Practitioner Family; PCP Nurse Practitioner
DX: K29.01 Acute gastritis with bleeding (principal); Z98.890 Other specified postprocedural states
CPT/HCPCS: 36415; 80053; 81003; 83605; 83690; 85025; 86850; 86900; 86901; 96361; 96374; 99283; 99284; C9113

== ENCOUNTER → 2020-09-07 09:34 | Outpatient (CLI) | payer OTHER, SELFPAY ==
[2020-09-07 09:49] LABS: Add Manual Diff / Slide Review NO; Basophils Absolute Auto 0 /uL (0-100); Basophils Percent Auto 0.7 % (0-2); Eosinophils Absolute Auto 100 /uL (0-450); Eosinophils Percent Auto 0.9 % (2-4); Hematocrit 41.4 % (41-53); Hemoglobin 13.8 g/dL (13.5-17.5); Lymphocytes Absolute Auto 2900 /uL (1100-4500); Lymphocytes Percent Auto 48.1 % (25-40); Mean Corpuscular HGB Conc 33.5 % (30-36); Mean Corpuscular Hemoglobin 26.9 PG (26-34); Mean Corpuscular Volume 80.3 fL (80-100); Monocytes Absolute Auto 700 /uL (0-900); Monocytes Percent Auto 11.8 % (3-14); Neutrophils Absolute Auto 2300 /uL (1500-7000); Neutrophils Percent Auto 38.5 % (50-75); Platelet Count 156 X10^3/uL (150-400); Red Blood Cell Count 5.15 X10^6/uL (4.5-5.9); Red Cell Distribution Width 13.5 % (11.6-14.8)
[2020-09-07 10:05] LABS: Alanine Aminotransferase 36 IU/L (<50); Albumin 4.3 g/dL (3.5-5.0); Albumin Globulin Ratio 1.4 (1.0-2.8); Alkaline Phosphatase 88 U/L (38-126); Amylase 55 U/L (30-110); Aspartate Aminotransferase 37 IU/L (17-59); Bilirubin Total 0.6 mg/dL (0.2-1.3); Blood Urea Nitrogen 13 mg/dL (9-20); Calcium 9.6 mg/dL (8.4-10.2); Carbon Dioxide 32 mmol/L (22-32); Chloride 105 mmol/L (98-107); Creatine Kinase 121 U/L (55-170); Estimated Glomerular Filt Rate > 60.0 mL/min (>60); Glucose 95 mg/dL (70-100); HEMOLYSIS < 15 (0-50); Lipase 89 U/L (23-300); Potassium 4.1 mmol/L (3.4-5.1); Sodium 140 mmol/L (137-145); Total Protein 7.3 g/dL (6.3-8.2)
[2020-09-07 10:16] LABS: Troponin I < 0.012 ng/mL (0.01-0.034)
[2020-09-07 10:21] LABS: CKMB % Relative Index 0.2 % (1.5-5.0); Creatine Kinase MB < 0.22 ng/mL (<2.37)
== END ==
PROVIDERS: PCP Nurse Practitioner; Referring Provider Physician Assistant; Visit Provider Physician Assistant
DX: R10.12 Left upper quadrant pain (principal)
CPT/HCPCS: 36415; 80053; 82150; 82550; 82553; 83690; 84484; 85025

== ENCOUNTER → 2020-09-13 14:27 | Outpatient (CLI) | payer OTHER, SELFPAY ==
[2020-09-13 15:00] LABS: COVID19 -Nasal RAPID Negative (Negative)
== END ==
PROVIDERS: PCP Nurse Practitioner; Visit Provider Physician Assistant
DX: R05 Cough (principal)
CPT/HCPCS: 87635

== ENCOUNTER → 2023-03-17 13:56 | Outpatient (CLI) | payer OTHER, SELFPAY ==
[2023-03-17 16:11] LABS: Alanine Aminotransferase 36 IU/L (<50); Albumin 4.7 g/dL (3.5-5.0); Albumin Globulin Ratio 1.7 (1.0-2.8); Alkaline Phosphatase 70 U/L (38-126); Aspartate Aminotransferase 36 IU/L (17-59); BUN Creatinine Ratio 21.4 (6-22); Bilirubin Total 0.5 mg/dL (0.2-1.3); Blood Urea Nitrogen 18 mg/dL (9-20); Calcium 9.8 mg/dL (8.4-10.2); Carbon Dioxide 26 mmol/L (22-32); Chloride 102 mmol/L (98-107); Estimated Glomerular Filt Rate > 60 mL/min (>60); Globulin 2.8 g/dL (1.7-4.1); Glucose 89 mg/dL (70-100); HEMOLYSIS < 15 (0-50); Potassium 4.3 mmol/L (3.4-5.1); Sodium 140 mmol/L (137-145); Total Protein 7.5 g/dL (6.3-8.2)
[2023-03-17 19:32] LABS: TSH w/ Reflex to FT4 2.77 uIU/mL (0.47-4.68)
[2023-03-18 06:33] LABS: Fructosamine 212 umol/L (0-285); x Labcorp Estim. Avg Glu (eAG) 103 mg/dL (.); x Labcorp Hemoglobin A1c 5.2 % (4.8-5.6)
[2023-03-18 12:41] LABS: Insulin Level Total 86.3 uIU/mL (2.6-24.9)
== END ==
PROVIDERS: PCP Family Medicine; Referring Provider Family Medicine; Visit Provider Family Medicine
DX: F32.A Depression, unspecified (principal); E16.2 Hypoglycemia, unspecified
CPT/HCPCS: 36415; 80053; 82985; 83036; 83525; 84443

== ENCOUNTER → 2023-04-07 15:14 | Outpatient (CLI) | payer OTHER, SELFPAY ==
--- NOTE | 2023-04-07 15:15 | DI.US.S_ITS ---
PROCEDURE: US ABDOMEN LIMITED INDICATIONS: HYPOGLYCEMIA TECHNIQUE: Real-time focused scanning was performed of the abdomen, with image documentation. COMPARISON: None. FINDINGS: Liver length of 19.4 cm. The liver is echogenic. No biliary ductal dilation demonstrated extrahepatic bile duct measures 3 mm. Gallbladder is contracted without stones visualized. No sonographic Sharp sign. Pancreas not well visualized due to bowel gas. IMPRESSION: 1. The liver is echogenic, a nonspecific finding commonly seen in the setting of steatosis. 2. No biliary ductal dilation demonstrated. Dictated by: Genaro Moncada M.D. on 04/07/2023 at 17:59 Approved by: Genaro Moncada M.D. on 04/07/2023 at 18:01
== END ==
PROVIDERS: PCP Family Medicine; Referring Provider Family Medicine; Visit Provider Family Medicine
DX: E16.2 Hypoglycemia, unspecified (principal)
CPT/HCPCS: 76705

== ENCOUNTER → 2023-05-05 07:59 | Outpatient (CLI) | payer OTHER, SELFPAY ==
[2023-05-05 09:23] LABS: Hemoglobin A1C% w Est Avg Glu 4.9 % (4.0-6.0)
[2023-05-05 09:41] LABS: Alanine Aminotransferase 31 IU/L (<50); Albumin 4.5 g/dL (3.5-5.0); Albumin Globulin Ratio 1.6 (1.0-2.8); Alkaline Phosphatase 62 U/L (38-126); Aspartate Aminotransferase 31 IU/L (17-59); BUN Creatinine Ratio 22.1 (6-22); Bilirubin Total 0.6 mg/dL (0.2-1.3); Blood Urea Nitrogen 17 mg/dL (9-20); Calcium 9.6 mg/dL (8.4-10.2); Carbon Dioxide 24 mmol/L (22-32); Chloride 103 mmol/L (98-107); Estimated Glomerular Filt Rate > 60 mL/min (>60); Globulin 2.8 g/dL (1.7-4.1); Glucose 87 mg/dL (70-100); HEMOLYSIS < 15 (0-50); Potassium 4.4 mmol/L (3.4-5.1); Sodium 139 mmol/L (137-145); Total Protein 7.3 g/dL (6.3-8.2)
[2023-05-07 10:25] LABS: Insulin Level Total 27.8 uIU/mL (2.6-24.9)
== END ==
PROVIDERS: PCP Family Medicine; Referring Provider Family Medicine; Visit Provider Family Medicine
DX: E16.2 Hypoglycemia, unspecified (principal)
CPT/HCPCS: 36415; 80053; 83036; 83525

== ENCOUNTER → 2023-07-26 07:50 | Outpatient (CLI) | payer OTHER, SELFPAY ==
--- NOTE | 2023-07-26 07:51 | DI.US.S_ITS ---
PROCEDURE: US SCROTUM INDICATIONS: possible absent vas on left TECHNIQUE: Real-time scanning was performed of the scrotum and testicles, with image documentation. Color and pulse Doppler interrogation was performed of both testicles. COMPARISON: None. FINDINGS: Right: Testicle is normal in size at 5.2 x 3.4 x 2.6 cm, and homogenous in echotexture. Epididymis is normal in overall size and morphology. No hydrocele or varicoceles. Overlying scrotal skin is normal in thickness. Left: Testicle is normal in size at 5.4 x 3.9 x 2.9 cm, and homogeneous in echotexture. Epididymis is normal in overall size and morphology. There is a 6 mm epididymal head cyst with some internal debris noted. No hydrocele or varicoceles. Overlying scrotal skin is normal in thickness. Doppler: Color and pulse Doppler demonstrate normal and symmetric arterial flow in both testicles. IMPRESSION: Unremarkable testicular ultrasound. Small left epididymal head cyst. Dictated by: Payton Wharton M.D. on 07/26/2023 at 9:09 Approved by: Payton Wharton M.D. on 07/26/2023 at 9:11
== END ==
PROVIDERS: PCP Family Medicine; Referring Provider Family Medicine; Visit Provider Family Medicine
DX: N50.3 Cyst of epididymis (principal); N50.89 Other specified disorders of the male genital organs; Z30.09 Encounter for other general counseling and advice on contraception
CPT/HCPCS: 76870

== ENCOUNTER 2023-08-18 04:27 | Emergency (ER) | payer OTHER, SELFPAY ==
[2023-08-18 04:32] VITALS: PULSE 124; O2SAT 96
[2023-08-18 04:33] VITALS: BP 123/83; PULSE 122; O2SAT 97
[2023-08-18 04:36] VITALS: BP 123/83; PULSE 117; RESP 18; TEMP 36.1; O2SAT 97; BMI 37.5
[2023-08-18] MEDS: ONDANSETRON 4 MG/2 ML INJ IV (04:42)
[2023-08-18] MEDS: SODIUM CHLORIDE 0.9% 1,000 ML 1000 ML IV (04:42)
[2023-08-18] MEDS: KETOROLAC 30 MG/ML VIAL IV (04:43)
--- NOTE | 2023-08-18 04:54 | ED.GENADULT ---
HPI - General Adult General Chief complaint: Abdominal Pain Stated complaint: norovirus Time Seen by Provider: 08/18/23 04:29 Source: patient Mode of arrival: Ambulatory History of Present Illness HPI narrative: 32-year-old male. Here for evaluation nausea and vomiting. No diarrhea. Patient's was seen here in the emergency department a couple days ago with nausea vomiting diarrhea. Was diagnosed with norovirus. Was discharged home with nausea medicine. Patient states that he is since developed the nausea and vomiting. He is try the nausea medication at home that his had however has not been able to hold anything down. Has vomited multiple times. No fevers. Has generalized abdominal discomfort. Related Data Previous Rx's Medication Instructions Recorded escitalopram oxalate 10 mg tablet 10 mg PO DAILY #90 tabs 03/17/23 (Lexapro) pioglitazone 15 mg tablet 15 mg PO DAILY #90 tabs 05/11/23 oxycodone-acetaminophen 5 mg-325 1 tab PO Q12H PRN pain #4 tabs 07/22/23 mg tablet (Percocet) Allergies Allergy/AdvReac Type Severity Reaction Status Date / Time acetaminophen [From Vicodin] Allergy Mild Unconscious Verified 04/07/23 13:50 diphenhydramine Allergy Mild ITCHING Verified 04/07/23 13:50 [From Benadryl] hydrocodone [From Vicodin] Allergy Mild Unconscious Verified 04/07/23 13:50 Review of Systems Constitutional Constitutional: Reports system reviewed and no additional complaints, except as documented Gastrointestinal Gastrointestinal: Reports system reviewed and no additional complaints, except as documented Genitourinary Genitourinary: Reports system reviewed and no additional complaints, except as documented Integumentary/Breasts Skin/Breast: Reports system reviewed and no additional complaints, except as documented Patient History Medical History Elevated fasting insulin level with normal glucose Hypoglycemia Generalized anxiety disorder Chronic lower back pain Epigastric pain LUQ pain Degenerative disk disease RAMAN on CPAP Chronic tonsillitis Hypertrophy of tonsils Surgical History No history of previous surgery Social History household members: spouse and children Smoking Status: Former smoker alcohol intake: current Smoking Status: Former smoker alcohol intake frequency: a few times a month Substance Use Type: does not use Exam Initial Vital Signs Initial Vital Signs: Vital Signs Pulse Rate 124 H 08/18/23 04:32 Pulse Oximetry 96 08/18/23 04:32 Const General: cooperative and comfortable HENMT Head: normal to inspection and normocephalic Mouth: No moist mucous membranes (Dry mucous membranes) Resp Effort & Inspection: normal respiratory effort Cardio Rate: tachycardic GI Inspection: non-distended Skin General: no rashes or lesions noted Course Orders Ordered: Discontinued Medications Sodium Chloride (Normal Saline 0.9%) 1,000 mls @ 1,000 mls/hr IV BOLUS ONE Stop: 08/18/23 05:33 Last Admin: 08/18/23 04:42 Dose: 1,000 mls/hr Documented By: JOAN Ketorolac Tromethamine (Ketorolac 30 Mg/Ml Vial) 30 mg IV NOW ONE Stop: 08/18/23 04:40 Last Admin: 08/18/23 04:43 Dose: 30 mg Documented By: JOAN Ondansetron HCl (Ondansetron 4 Mg/2 Ml Inj) 4 mg IV NOW ONE Stop: 08/18/23 04:35 Last Admin: 08/18/23 04:42 Dose: 4 mg Documented By: JOAN Ondansetron HCl (Ondansetron 4 Mg Odt Prepack) 1 bottle MISC DIRECTED ONE Stop: 08/18/23 05:40 Vital Signs Vital signs: Vital Signs - 8 hr 08/18/23 04:32 08/18/23 04:33 08/18/23 04:33 Temperature Pulse Rate 124 H 122 H Respiratory Rate Blood Pressure 123/83 Pulse Oximetry 96 97 Oxygen Delivery Method 08/18/23 04:36 08/18/23 05:00 08/18/23 05:00 Temperature 97 F L Pulse Rate 117 H 98 H Respiratory Rate 18 Blood Pressure 123/83 125/74 Pulse Oximetry 97 91 Oxygen Delivery Method Room Air 08/18/23 05:30 08/18/23 05:30 Temperature Pulse Rate 97 H Respiratory Rate Blood Pressure 126/71 Pulse Oximetry 90 L Oxygen Delivery Method Medical Decision Making MDM Narrative Medical decision making narrative: After Toradol fluids and Zofran patient states that he is feeling much better. He was able to take small sips of fluid. No indication for labs or radiologic studies. Will discharge home with a prepack of Zofran and instructions to increase his fluid intake. He was given return precautions. He expressed understanding and agreement Discharge Plan Departure Patient Disposition: Home Clinical Impression: Vomiting, Dehydration Instructions: DI for Vomiting -- Adult Activity Restrictions/Additional Instructions: It is important that you try to stay as hydrated as possible by drinking small amounts frequently. Use the nausea medication as needed. Be sure that your washing your hands frequently. Return to the emergency department for new symptoms. Prescriptions: No Action oxycodone-acetaminophen [Percocet] 5-325 mg tablet 1 tab PO Q12H PRN (Reason: pain) Qty: 4 0RF escitalopram oxalate [Lexapro] 10 mg tablet 10 mg PO DAILY Qty: 90 3RF pioglitazone 15 mg tablet 15 mg PO DAILY Qty: 90 3RF Referrals: Tariq Bruce DO [Primary Care Provider] - Stand Alone Forms: Patient Portal/API
[2023-08-18 05:00] VITALS: BP 125/74; PULSE 98; O2SAT 91
[2023-08-18 05:30] VITALS: BP 126/71; PULSE 97; O2SAT 90
[2023-08-18] MEDS: ONDANSETRON 4 MG ODT PREPACK 1 BOTTLE MISC (05:43)
== END 2023-08-18 05:48 | disposition home or self-care (01) ==
PROVIDERS: Emergency Provider Emergency Medicine; PCP Family Medicine
DX: R11.2 Nausea with vomiting, unspecified (principal); E86.0 Dehydration; R10.84 Generalized abdominal pain
CPT/HCPCS: 36415; 96361; 96374; 96375; 99284; J1885; J2405

== ENCOUNTER → 2023-09-29 09:00 | Outpatient (CLI) | payer OTHER, SELFPAY ==
--- NOTE | 2023-09-29 09:01 | DI.RAD.S_ITS ---
PROCEDURE: XR WRIST RT MIN 3V INDICATIONS: R hand/wrist pain TECHNIQUE: 4 views of the wrist were acquired. COMPARISON: None. FINDINGS: Bones: No fractures or dislocations. No suspicious bony lesions. Soft tissues: No suspicious soft tissue calcifications. IMPRESSION: No acute bony abnormality. Dictated by: Ralph Dougherty M.D. on 09/29/2023 at 13:19 Approved by: Ralph Dougherty M.D. on 09/29/2023 at 13:19
== END ==
PROVIDERS: PCP Family Medicine; Referring Provider Family Medicine; Visit Provider Family Medicine
DX: M25.531 Pain in right wrist (principal); M79.641 Pain in right hand
CPT/HCPCS: 73110

== ENCOUNTER → 2024-07-03 08:02 | Outpatient (CLI) | payer OTHER, SELFPAY ==
[2024-07-03 09:27] LABS: Add Manual Diff / Slide Review NO; Basophils Absolute Auto 100 /uL (0-100); Basophils Percent Auto 0.6 % (0-2); Eosinophils Absolute Auto 400 /uL (0-450); Eosinophils Percent Auto 3.7 % (2-4); Hematocrit 43.2 % (41-53); Hemoglobin 14.7 g/dL (13.5-17.5); Lymphocytes Absolute Auto 3300 /uL (1100-4500); Lymphocytes Percent Auto 34.3 % (25-40); Mean Corpuscular Hemoglobin 27.5 PG (26-34); Mean Corpuscular Volume 80.9 fL (80-100); Monocytes Absolute Auto 800 /uL (0-900); Monocytes Percent Auto 8.4 % (3-14); Neutrophils Absolute Auto 5100 /uL (1500-7000); Platelet Count 214 X10^3/uL (150-400); Red Blood Cell Count 5.34 X10^6/uL (4.5-5.9); Red Cell Distribution Width 12.9 % (11.6-14.8); White Blood Cell Count 9.6 X10^3/uL (4.5-11.0)
[2024-07-03 10:05] LABS: Alanine Aminotransferase 32 IU/L (<50); Albumin 4.3 g/dL (3.5-5.0); Albumin Globulin Ratio 1.7 (1.0-2.8); Alkaline Phosphatase 70 U/L (38-126); Aspartate Aminotransferase 38 IU/L (17-59); BUN Creatinine Ratio 18.6 (6-22); Bilirubin Total 0.4 mg/dL (0.2-1.3); Blood Urea Nitrogen 18 mg/dL (9-20); Calcium 9.5 mg/dL (8.4-10.2); Carbon Dioxide 27 mmol/L (22-32); Chloride 104 mmol/L (98-107); Estimated Glomerular Filt Rate > 60 mL/min (>60); Globulin 2.5 g/dL (1.7-4.1); Glucose 99 mg/dL (70-100); HEMOLYSIS < 15 (0-50); Potassium 4.3 mmol/L (3.4-5.1); Sodium 139 mmol/L (137-145); Total Protein 6.8 g/dL (6.3-8.2)
[2024-07-03 10:33] LABS: TSH w/ Reflex to FT4 6.66 uIU/mL (0.47-4.68)
[2024-07-03 12:02] LABS: Free T4, Direct Thyroxine 0.87 ng/dL (0.78-2.19)
== END ==
PROVIDERS: PCP Family Medicine; Referring Provider Family Medicine; Visit Provider Family Medicine
DX: R53.83 Other fatigue (principal); R63.5 Abnormal weight gain; E16.2 Hypoglycemia, unspecified; R40.0 Somnolence
CPT/HCPCS: 36415; 80053; 84402; 84403; 84439; 84443; 85025

== ENCOUNTER → 2025-06-05 09:15 | Outpatient (CLI) | payer OTHER, SELFPAY ==
--- NOTE | 2025-06-05 09:17 | DI.ECHO.S_ITS ---
[facility] +---------+ Hospital : : [address] : : [place] : : [id number] : : Phone: [phone] Echocardiogram Report + + :Name: ATIF GREWAL Study Date: 06/05/2025 Height: 76 in : :[facility] ReadingLocation: Weight: 310 lb : : Gender: Male BSA: 2.7 m2 : :: 1990 Age: 34 yrs BP: 136/85 mmHg: :Reason For Study: Atypical chest pain : :Ordering Physician: AZRA, : :NATE Performed By: Jovi Laird : :Referring: NATE OQUENDO : + + Interpretation Summary The left ventricle is normal in size. Left ventricular systolic function is normal. The ejection fraction is estimated to be 60-65%. There are no obvious focal wall motion abnormalities noted but poor endocardial definition reduces the sensitivity for the detection of such. Grade I diastolic dysfunction with normal left atrial pressure. The right ventricle is normal in size and function. The left atrial size is normal. There is no significant valvular heart disease. The aortic root is normal size. Procedure: A two-dimensional transthoracic echocardiogram with color flow and Doppler was performed. The study quality was technically adequate. There is no prior echocardiogram noted for this patient. The patient was in normal sinus rhythm during the exam. Left Ventricle: The left ventricle is normal in size. Left ventricular wall thickness is mildly increased. Left ventricular systolic function is normal. The ejection fraction is estimated to be 60-65%. There are no obvious focal wall motion abnormalities noted but poor endocardial definition reduces the sensitivity for the detection of such. Grade I diastolic dysfunction with normal left atrial pressure. Right Ventricle: The right ventricle is normal in size and function. Atria: The left atrial size is normal. Right atrial size is normal. There is no Doppler evidence for an interatrial shunt. Mitral Valve: The mitral valve leaflets appear to open well. There is no mitral valve stenosis. There is trace mitral regurgitation. Aortic Valve: The aortic valve is trileaflet. The aortic valve opens well. There is no aortic valve stenosis. No aortic regurgitation is present. Tricuspid Valve: The tricuspid valve is not well visualized, but is grossly normal. There is trace tricuspid regurgitation. Pulmonic Valve: The pulmonic valve is not well seen, but is grossly normal. There is a trace or physiologic amount of pulmonic regurgitation. There is no significant valvular heart disease. Great Vessels: The aortic root is normal size. The ascending aorta is normal in size. The aortic arch could not be visualized. The pulmonary artery is normal size. The IVC is of normal diameter and collapses greater than 50% with a sniff. This suggests a low right atrial pressure of 3 mm Hg. Pericardium/ Pleura There is no pericardial effusion. MMode/2D Measurements & Calculations LVIDd: 4.3 cm LVOT diam: 2.4 cm LVIDs: 3.0 cm Ao root diam: 3.9 cm FS: 30.2 % asc Aorta Diam: 3.5 cm IVSd: 1.3 cm LVPWd: 1.3 cm LV owesn. diameter/BSA (cm/m^2): 1.6 LV sys. diameter/BSA (cm/m^2): 1.1 LA A2 area: 15.7 cm2 IVC diam: 1.1 cm LA A4 area: 17.5 cm2 LA length (vol): 5.5 cm LA vol: 42.5 ml LA vol index: 15.9 ml/m2 RVD1 (basal): 2.4 cm RVD2 (mid): 2.2 cm TAPSE: 1.9 cm Doppler Measurements & Calculations Ao V2 max: 114.5 cm/sec LVOT Max Juan: 103.9 cm/sec Ao V2 mean: 80.4 cm/sec LV V1 max P.3 mmHg Ao max P.2 mmHg LV V1 VTI: 17.3 cm Ao mean P.9 mmHg FELICIA(I,D): 4.5 cm2 Ao V2 VTI: 17.7 cm FELICIA(V,D): 4.1 cm2 sev ratio: 0.98 FELICIA indexed to BSA (cm^2/m^2): 1.7 MV E max juan: 46.9 cm/sec SV(LVOT): 79.2 ml MV A max juan: 68.1 cm/sec MV E/A: 0.69 MV dec time: 0.15 sec Reading Physician:10:21 PM
== END ==
LOC: ECHO 09:16
PROVIDERS: PCP Family Medicine; Referring Provider Family Medicine; Visit Provider Family Medicine
DX: R07.89 Other chest pain (principal)
CPT/HCPCS: 93306